=== PATIENT | female | born 1945 | race Caucasian/White ===

== ENCOUNTER 2020-12-21 11:33 | Emergency (ER) | payer OTHER ==
[~2020-12-21 11:33] MED LIST: IBUPROFEN800 MG PO; LEVAQUIN500 MG PO; ROBAXIN750 MG PO
[2020-12-21 12:46] LABS: ALBUMIN 3.2 g/dL (3.4-5.0); BASOPHIL 0.7 % (0-2); BILIRUBIN - TOTAL 0.9 mg/dL (0.2-1.0); BUN/CREAT RATIO (CALC) 10.4 RATIO; CREATININE 0.67 mg/dL (0.51-0.95); EOSINOPHIL 2.9 % (0-7); GLOBULIN (CALCULATION) 3.6 g/dL; HCT 35.5 % (37.0-47.0); HGB 11.8 g/dl (12.5-16.0); LYMPHOCYTE 36.3 % (15-48); MCH 32.2 pg (25.0-31.0); MCHC 33.2 g/dL (32.0-36.0); MONOCYTE 12.9 % (0-12); MPV 9.5 fL (6.0-9.5); NRBC 0; PLT 147 K/uL (150-400); POTASSIUM 3.8 mmol/L (3.5-5.1); RBC 3.66 M/uL (4.20-5.40); RDW 14.5 % (11.5-14.0); TOTAL PROTEIN 6.8 g/dL (6.4-8.2); WBC 4.1 K/uL (4.0-10.5)
== END 2020-12-21 13:44 | disposition home or self-care (01) ==
LOC: FER 11:33
PROVIDERS: Emergency Medicine
DX: R55 Syncope and collapse (principal); Z88.0 Allergy status to penicillin; Z88.5 Allergy status to narcotic agent
CPT/HCPCS: 36415; 70450; 80053; 85025; 93005

== ENCOUNTER 2021-01-31 18:24 | Emergency (ER) | payer OTHER ==
[2021-01-31 20:29] LABS: INR 1.35 (0.9-1.2); PROTHROMBIN TIME 15.8 SECONDS (11.4-13.6)
[2021-01-31 20:30] LABS: BASOPHIL 0.8 % (0-2); EOSINOPHIL 0.4 % (0-7); HCT 35.7 % (37.0-47.0); HGB 12.4 g/dl (12.5-16.0); LYMPHOCYTE 22.3 % (15-48); MCH 32.5 pg (25.0-31.0); MCHC 34.7 g/dL (32.0-36.0); MCV 93.7 fL (78.0-100.0); MONOCYTE 10.7 % (0-12); MPV 9.7 fL (6.0-9.5); NEUTROPHIL 65.6 % (41-80); NRBC 0; PLT 153 K/uL (150-400); RBC 3.81 M/uL (4.20-5.40); RDW 14.5 % (11.5-14.0); WBC 5.3 K/uL (4.0-10.5)
[2021-01-31 20:37] LABS: ALBUMIN 3.5 g/dL (3.4-5.0); BILIRUBIN - TOTAL 1.1 mg/dL (0.2-1.0); BUN/CREAT RATIO (CALC) 7.2 RATIO; CREATININE 0.69 mg/dL (0.51-0.95); GLOBULIN (CALCULATION) 3.5 g/dL; POTASSIUM 3.5 mmol/L (3.5-5.1)
[2021-01-31 20:48] LABS: LACTIC ACID 2.7 mmol/L (0.4-1.9)
[2021-01-31 22:00] LABS: BILIRUBIN NEGATIVE (NEGATIVE); BLOOD NEGATIVE Ery/uL (NEGATIVE); CLARITY CLEAR (CLEAR); COLOR YELLOW (YELLOW); GLUCOSE (U) NORMAL (NORMAL); LEUKOCYTES NEGATIVE Leu/uL (NEGATIVE); NITRITE NEGATIVE (NEGATIVE); PROTEIN NEGATIVE (NEGATIVE); SPECIFIC GRAVITY 1.015 (1.001-1.030); UROBILINOGEN 0.2 mg/dL (0.2-1.0); pH 8.5 (5.0-9.0)
[2021-01-31] MEDS ORDERED: ZOFRAN4 M1 PO (22:51)
== END 2021-01-31 23:20 | disposition home or self-care (01) ==
LOC: FER 18:24
PROVIDERS: Emergency Medicine
DX: K74.60 Unspecified cirrhosis of liver (principal); R11.10 Vomiting, unspecified; Z87.19 Personal history of other diseases of the digestive system
CPT/HCPCS: 36415; 71045; 80053; 81003; 82140; 82150; 83605; 83690; 84484; 85025; 85610; 93005; J2405; J7030; Q9967

== ENCOUNTER 2021-08-06 08:30 | Inpatient (IN) | payer OTHER ==
[~2021-08-06] VITALS: Ht 162.6 cm; Wt 76.3 kg
[~2021-08-06 08:30] MED LIST changes: +AZITHROMYCIN 2250 MG PO; +ZOFRAN4 M1 PO
[2021-08-06 09:24] LABS: BASOPHIL 0.8 % (0-2); HCT 39.9 % (37.0-47.0); HGB 13.3 g/dl (12.5-16.0); LYMPHOCYTE 22.6 % (15-48); MCHC 33.3 g/dL (32.0-36.0); MONOCYTE 10.1 % (0-12); MPV 9.5 fL (6.0-9.5); NEUTROPHIL 64.2 % (41-80); NRBC 0; PLT 182 K/uL (150-400); RBC 4.03 M/uL (4.20-5.40); RDW 13.1 % (11.5-14.0)
[2021-08-06 09:31] LABS: AMPHETAMINES NEGATIVE (NEGATIVE); BARBITURATES NEGATIVE (NEGATIVE); ECSTASY (MDMA) NEGATIVE (NEGATIVE); MARIJUANA (THC) NEGATIVE (NEGATIVE); METHADONE NEGATIVE (NEGATIVE); OPIATES POSITIVE (NEGATIVE); OXYCODONE POSITIVE (NEGATIVE)
[2021-08-06 09:40] LABS: INR 1.1 (0.9-1.2); PROTHROMBIN TIME 13.6 SECONDS (11.8-13.4)
[2021-08-06 09:46] LABS: PRO-BNP 121 pg/mL (<450)
[2021-08-06 09:55] LABS: ALBUMIN 3.5 g/dL (3.4-5.0); ALKALINE PHOSHATASE 97 U/L (46-116); ALT 47 U/L (14-59); AST 47 U/L (15-37); BILIRUBIN - TOTAL 0.6 mg/dL (0.2-1.0); BUN 19 mg/dL (7-18); C-REACTIVE PROTEIN <0.20 mg/dL (<=0.90); CHLORIDE 100 mmol/L (98-107); CO2 (BICARBONATE) 25 mmol/L (21-32); CREATININE 0.73 mg/dL (0.51-0.95); GLOBULIN (CALCULATION) 3.4 g/dL; GLUCOSE 184 mg/dL (74-106); MAGNESIUM 1.6 mg/dL (1.8-2.4); POTASSIUM 4.2 mmol/L (3.5-5.1); TOTAL PROTEIN 6.9 g/dL (6.4-8.2)
[2021-08-06 10:03] LABS: LACTIC ACID 3.8 mmol/L (0.4-1.9)
[2021-08-06 10:21] LABS: BILIRUBIN NEGATIVE (NEGATIVE); BLOOD NEGATIVE Ery/uL (NEGATIVE); CLARITY CLEAR (CLEAR); COLOR YELLOW (YELLOW); GLUCOSE (U) NORMAL (NORMAL); LEUKOCYTES 1+ Leu/uL (NEGATIVE); NITRITE NEGATIVE (NEGATIVE); PROTEIN NEGATIVE (NEGATIVE)
[2021-08-06 10:33] LABS: BACTERIA 1+; SQUAMOUS EPITHELIAL CELLS 20-50
[2021-08-06] MEDS ORDERED: GABAPENTIN300 MG PO (15:20)
[2021-08-06] MEDS ORDERED: ESCITALOPRAM OX20 MG PO (15:23)
[2021-08-06] MEDS ORDERED: ELAVIL25 MG PO (15:23)
[2021-08-06] MEDS ORDERED: SPIRONOLACTONE50 M1 PO (15:24)
[2021-08-06] MEDS ORDERED: METOPROLOL SUCC50 MG PO (15:24)
[2021-08-07 06:49] LABS: BASOPHIL 0.5 % (0-2); EOSINOPHIL 1.4 % (0-7); HCT 35.3 % (37.0-47.0); MCH 33.3 pg (25.0-31.0); MCV 98.1 fL (78.0-100.0); MONOCYTE 9.9 % (0-12); MPV 9.4 fL (6.0-9.5); NRBC 0; PLT 155 K/uL (150-400); WBC 6.3 K/uL (4.0-10.5)
[2021-08-07 07:10] LABS: BILIRUBIN - TOTAL 0.6 mg/dL (0.2-1.0); BUN/CREAT RATIO (CALC) 15.3 RATIO; CREATININE 0.59 mg/dL (0.51-0.95); GLOBULIN (CALCULATION) 3.5 g/dL; MAGNESIUM 2.1 mg/dL (1.8-2.4); POTASSIUM 3.9 mmol/L (3.5-5.1); TOTAL PROTEIN 6.5 g/dL (6.4-8.2)
[2021-08-08 06:06] LABS: BASOPHIL 0.6 % (0-2); EOSINOPHIL 1.7 % (0-7); HCT 37.5 % (37.0-47.0); HGB 12.7 g/dl (12.5-16.0); MCH 33.1 pg (25.0-31.0); MCHC 33.9 g/dL (32.0-36.0); MCV 97.7 fL (78.0-100.0); MONOCYTE 10.1 % (0-12); MPV 9.4 fL (6.0-9.5); NEUTROPHIL 56.3 % (41-80); NRBC 0; PLT 171 K/uL (150-400); RBC 3.84 M/uL (4.20-5.40); RDW 12.9 % (11.5-14.0); WBC 6.9 K/uL (4.0-10.5)
[2021-08-08 06:36] LABS: ALBUMIN 3.2 g/dL (3.4-5.0); BILIRUBIN - TOTAL 0.8 mg/dL (0.2-1.0); CREATININE 0.57 mg/dL (0.51-0.95); GLOBULIN (CALCULATION) 3.4 g/dL; MAGNESIUM 1.7 mg/dL (1.8-2.4); TOTAL PROTEIN 6.6 g/dL (6.4-8.2)
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
[2021-08-09 07:07] LABS: BASOPHIL 0.6 % (0-2); EOSINOPHIL 2.4 % (0-7); HCT 38.8 % (37.0-47.0); MCHC 33.5 g/dL (32.0-36.0); MCV 98.5 fL (78.0-100.0); MONOCYTE 11.3 % (0-12); MPV 9.4 fL (6.0-9.5); NEUTROPHIL 58.4 % (41-80); NRBC 0; PLT 155 K/uL (150-400); RBC 3.94 M/uL (4.20-5.40); RDW 12.8 % (11.5-14.0); WBC 7.9 K/uL (4.0-10.5)
[2021-08-09 07:48] LABS: ALBUMIN 3.1 g/dL (3.4-5.0); BILIRUBIN - TOTAL 0.6 mg/dL (0.2-1.0); BUN/CREAT RATIO (CALC) 16.4 RATIO; CREATININE 0.55 mg/dL (0.51-0.95); GLOBULIN (CALCULATION) 3.8 g/dL; POTASSIUM 4.1 mmol/L (3.5-5.1); TOTAL PROTEIN 6.9 g/dL (6.4-8.2)
[2021-08-09] MEDS ORDERED: CEFDINIR300 MG PO (09:28)
[2021-08-09] MEDS ORDERED: LACTULOSE10 G/15 ML PO (09:28)
--- NOTE | 2021-08-09 14:13 | NUR ---
08/09/21 Dr. Knight reports patient to be alert and oriented and ready for discharge. Ms. Bella chose [facility]. A referral was made via [facility]. Pedro Luis Phillips, son, was informed of the discharge. He reports plans to consider [facility]. Mr. Phillpis will also consider taking time from work to be with his mother for several days or to get her sister to stay in the home. 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
== END 2021-08-09 16:25 | disposition home health service (06) | DRG 871 ==
LOC: FER 08:30 → FMS 12:24
PROVIDERS: Emergency Medicine; ADMIT Internal Medicine
DX: A41.9 Sepsis, unspecified organism (principal); G92.8 Other toxic encephalopathy; K72.00 Acute and subacute hepatic failure without coma; N30.00 Acute cystitis without hematuria; E87.2 Acidosis; R65.20 Severe sepsis without septic shock; Z20.822 Contact with and (suspected) exposure to COVID-19; F41.8 Other specified anxiety disorders; E83.42 Hypomagnesemia; K75.81 Nonalcoholic steatohepatitis (NASH); F32.A Depression, unspecified; K74.60 Unspecified cirrhosis of liver; M79.7 Fibromyalgia; Z96.652 Presence of left artificial knee joint; Z88.1 Allergy status to other antibiotic agents; Z79.899 Other long term (current) drug therapy; Z87.891 Personal history of nicotine dependence; Z80.1 Family history of malignant neoplasm of trachea, bronchus and lung; Z80.41 Family history of malignant neoplasm of ovary; Z90.49 Acquired absence of other specified parts of digestive tract; Z90.710 Acquired absence of both cervix and uterus; Z98.41 Cataract extraction status, right eye; Z98.42 Cataract extraction status, left eye; Z98.890 Other specified postprocedural states
CPT/HCPCS: 36415; 70450; 71045; 80053; 80305; 81001; 82140; 82728; 82962; 83036; 83605; 83735; 83880; 84145; 84484; 85025; 85610; 85730; 86140; 87040; 87088; 93005; 96374; J0692; J0696; J1650; J3475; J7030; U0002

== ENCOUNTER 2022-02-16 11:01 | Inpatient (IN) | payer OTHER ==
[~2022-02-16] VITALS: Ht 162.6 cm; Wt 83.1 kg
[~2022-02-16 11:01] MED LIST changes: +CEFDINIR300 MG PO; +ELAVIL25 MG PO; +ESCITALOPRAM OX20 MG PO; +GABAPENTIN300 MG PO; +LACTULOSE10 G/15 ML PO; +METOPROLOL SUCC50 MG PO; +SPIRONOLACTONE50 M1 PO
[2022-02-16 12:49] LABS: BASOPHIL 0.4 % (0-2); EOSINOPHIL 0.1 % (0-7); HCT 32.1 % (37.0-47.0); HGB 10.9 g/dl (12.5-16.0); LYMPHOCYTE 19.8 % (15-48); MCH 33.7 pg (25.0-31.0); MCV 99.4 fL (78.0-100.0); MPV 10.1 fL (6.0-9.5); NEUTROPHIL 64.4 % (41-80); NRBC 0; PLT 96 K/uL (150-400); RBC 3.23 M/uL (4.20-5.40); RDW 13.6 % (11.5-14.0); WBC 7.3 K/uL (4.0-10.5)
[2022-02-16 13:00] LABS: ALBUMIN 2.9 g/dL (3.4-5.0); BILIRUBIN - TOTAL 1.2 mg/dL (0.2-1.0); CREATININE 0.82 mg/dL (0.51-0.95); GLOBULIN (CALCULATION) 2.9 g/dL; MAGNESIUM 1.4 mg/dL (1.8-2.4); POTASSIUM 3.9 mmol/L (3.5-5.1); TOTAL PROTEIN 5.8 g/dL (6.4-8.2)
[2022-02-16 13:07] LABS: BILIRUBIN NEGATIVE (NEGATIVE); BLOOD 2+ Ery/uL (NEGATIVE); CLARITY HAZY (CLEAR); COLOR YELLOW (YELLOW); GLUCOSE (U) NORMAL (NORMAL); LEUKOCYTES 2+ Leu/uL (NEGATIVE); NITRITE NEGATIVE (NEGATIVE); PROTEIN 1+ mg/dL (NEGATIVE)
[2022-02-16 13:14] LABS: URINARY WBC TNTC
[2022-02-16 13:15] LABS: BACTERIA 1+
[2022-02-16 13:26] LABS: LACTIC ACID 1.3 mmol/L (0.4-1.9)
[2022-02-16] MEDS ORDERED: ACETAMINOPHEN325 MG PO (19:37)
[2022-02-16] MEDS ORDERED: FLEXERIL5 MG PO (19:37)
[2022-02-16] MEDS ORDERED: GABAPENTIN300 MG PO (19:38)
[2022-02-16] MEDS ORDERED: COLACE100 MG PO (19:38)
[2022-02-16] MEDS ORDERED: LEXAPRO 10MG TA10 MG PO (19:38)
[2022-02-16] MEDS ORDERED: LACTULOSE10 G/15 ML PO (19:41)
[2022-02-16] MEDS ORDERED: ACIDOPHILUS PR1 EAC1 PO (19:41)
[2022-02-16] MEDS ORDERED: SEROQUEL 25MG T25 MG PO (19:42)
[2022-02-16] MEDS ORDERED: ALDACTONE50 MG PO (19:42)
[2022-02-16] MEDS ORDERED: TOPROL XL 50 MG50 MG PO (19:42)
[2022-02-16] MEDS ORDERED: ZINC50 MG PO (19:43)
[2022-02-17 11:41] LABS: BASOPHIL 0.4 % (0-2); EOSINOPHIL 0.2 % (0-7); HCT 29.6 % (37.0-47.0); LYMPHOCYTE 18.9 % (15-48); MCH 33.2 pg (25.0-31.0); MCHC 33.8 g/dL (32.0-36.0); MCV 98.3 fL (78.0-100.0); MPV 9.8 fL (6.0-9.5); NEUTROPHIL 64.1 % (41-80); NRBC 0; PLT 90 K/uL (150-400); RBC 3.01 M/uL (4.20-5.40); RDW 13.2 % (11.5-14.0)
[2022-02-17 11:42] LABS: WBC 5.1 K/uL (4.0-10.5)
[2022-02-17 12:23] LABS: ALBUMIN 2.4 g/dL (3.4-5.0); BILIRUBIN - DIRECT 0.2 mg/dL (0.00-0.20); BILIRUBIN - TOTAL 0.5 mg/dL (0.2-1.0); BUN/CREAT RATIO (CALC) 24.4 RATIO; CREATININE 0.78 mg/dL (0.51-0.95); GLOBULIN (CALCULATION) 3.2 g/dL; MAGNESIUM 1.9 mg/dL (1.8-2.4); PHOSPHORUS 2.2 mg/dL (2.6-4.7); POTASSIUM 3.8 mmol/L (3.5-5.1); TOTAL PROTEIN 5.6 g/dL (6.4-8.2)
--- NOTE | 2022-02-17 13:13 | NUR ---
02/17 Ms. Bella was admitted from [facility]. She uses a rw walker for ambulation and receives in-house therapy at [facility]. She is confused and has a mental health history at baseline. Per [facility] nursing, she was sent to the ED because she had a temp of 102 after being treated with oral antibiotics for 2 days and started running a fever of 102. - She may return to [facility] if SNF services are not needed. Call report to: [phone] and fax DS to: [phone].
[2022-02-17 19:00] LABS: BASOPHIL 0.3 % (0-2); EOSINOPHIL 0.6 % (0-7); HCT 33.4 % (37.0-47.0); HGB 11.1 g/dl (12.5-16.0); MCH 32.8 pg (25.0-31.0); MCHC 33.2 g/dL (32.0-36.0); MCV 98.8 fL (78.0-100.0); MONOCYTE 17.8 % (0-12); MPV 10.1 fL (6.0-9.5); NEUTROPHIL 55.4 % (41-80); NRBC 0; PLT 115 K/uL (150-400); RBC 3.38 M/uL (4.20-5.40); RDW 13.2 % (11.5-14.0); RETICULOCYTE COUNT 2.1 % (1.0-2.0); WBC 6.3 K/uL (4.0-10.5)
[2022-02-17 19:17] LABS: IRON % SATURATION 5.8 %SAT (20-50); LYMPHOCYTE 25.6 % (15-48)
[2022-02-17 20:07] LABS: BUN/CREAT RATIO (CALC) 24.7 RATIO; CREATININE 0.77 mg/dL (0.51-0.95); FOLIC ACID (SERUM) 19.5 ng/mL (8.6-58.9); PHOSPHORUS 2.9 mg/dL (2.6-4.7); POTASSIUM 3.9 mmol/L (3.5-5.1)
[2022-02-18 06:53] LABS: BASOPHIL 0.5 % (0-2); EOSINOPHIL 2.1 % (0-7); HCT 30.2 % (37.0-47.0); HGB 10.3 g/dl (12.5-16.0); LYMPHOCYTE 25.7 % (15-48); MCH 33.7 pg (25.0-31.0); MCHC 34.1 g/dL (32.0-36.0); MCV 98.7 fL (78.0-100.0); MONOCYTE 19.6 % (0-12); MPV 9.6 fL (6.0-9.5); NEUTROPHIL 51.8 % (41-80); NRBC 0; PLT 83 K/uL (150-400); RBC 3.06 M/uL (4.20-5.40); RDW 13.4 % (11.5-14.0)
[2022-02-18 06:54] LABS: WBC 3.8 K/uL (4.0-10.5)
[2022-02-18 07:21] LABS: BUN/CREAT RATIO (CALC) 21.2 RATIO; CREATININE 0.66 mg/dL (0.51-0.95); POTASSIUM 3.8 mmol/L (3.5-5.1)
[2022-02-20 10:31] LABS: BUN/CREAT RATIO (CALC) 13.8 RATIO; CREATININE 0.65 mg/dL (0.51-0.95)
[2022-02-20 10:38] LABS: BASOPHIL 1.2 % (0-2); HCT 32.6 % (37.0-47.0); HGB 10.7 g/dl (12.5-16.0); LYMPHOCYTE 39.1 % (15-48); MCH 32.6 pg (25.0-31.0); MCHC 32.8 g/dL (32.0-36.0); MCV 99.4 fL (78.0-100.0); MONOCYTE 10.5 % (0-12); MPV 9.8 fL (6.0-9.5); NEUTROPHIL 45.7 % (41-80); NRBC 0; PLT 136 K/uL (150-400); RBC 3.28 M/uL (4.20-5.40); RDW 13.5 % (11.5-14.0); WBC 4.3 K/uL (4.0-10.5)
[2022-02-20] MEDS ORDERED: TEGRETOL200 MG PO (13:42)
[2022-02-20] MEDS ORDERED: GABAPENTIN300 MG PO ×3 (16:08→16:11)
== END 2022-02-20 16:12 | disposition home or self-care (01) | DRG 871 ==
LOC: FER 11:01 → FTCU 17:36 → FMS 02-17 15:35
PROVIDERS: Emergency Medicine; Nurse Practitioner; ADMIT Internal Medicine
PROC: 3E03329 Introduction of Other Anti-infective into Peripheral Vein, Percutaneous Approach (ICD-10-PCS; principal; 2022-02-16)
PROC: 0T9B70Z Drainage of Bladder with Drainage Device, Via Natural or Artificial Opening (ICD-10-PCS; 2022-02-16)
DX: A41.51 Sepsis due to Escherichia coli [E. coli] (principal); G92.8 Other toxic encephalopathy; K72.00 Acute and subacute hepatic failure without coma; N30.01 Acute cystitis with hematuria; K76.6 Portal hypertension; E87.2 Acidosis; Z66 Do not resuscitate; R65.20 Severe sepsis without septic shock; F31.9 Bipolar disorder, unspecified; F03.90 Unspecified dementia, unspecified severity, without behavioral disturbance, psychotic disturbance, mood disturbance, and anxiety; G50.0 Trigeminal neuralgia; E11.9 Type 2 diabetes mellitus without complications; D50.9 Iron deficiency anemia, unspecified; D69.6 Thrombocytopenia, unspecified; K74.60 Unspecified cirrhosis of liver; K75.81 Nonalcoholic steatohepatitis (NASH); F41.9 Anxiety disorder, unspecified; Z88.1 Allergy status to other antibiotic agents; Z88.5 Allergy status to narcotic agent; Z79.899 Other long term (current) drug therapy; Z87.891 Personal history of nicotine dependence; Z90.49 Acquired absence of other specified parts of digestive tract; Z80.1 Family history of malignant neoplasm of trachea, bronchus and lung; Z90.710 Acquired absence of both cervix and uterus; Z98.41 Cataract extraction status, right eye; Z98.42 Cataract extraction status, left eye; Z96.652 Presence of left artificial knee joint
CPT/HCPCS: 36415; 70450; 80048; 80053; 81001; 82140; 82248; 82607; 82746; 82962; 83036; 83540; 83550; 83605; 83615; 83735; 84100; 84145; 85025; 87040; 87076; 87088; 87186; 94010; 96365; J0696; J1650; J1885; J2916; J3475; J3490; J7120

== ENCOUNTER 2022-05-31 08:39 | Emergency (ER) | payer OTHER ==
[~2022-05-31 08:39] MED LIST changes: +ACETAMINOPHEN325 MG PO; +ACIDOPHILUS PR1 EAC1 PO; +ALDACTONE50 MG PO; +COLACE100 MG PO; +FLEXERIL5 MG PO; +LEXAPRO 10MG TA10 MG PO; +SEROQUEL 25MG T25 MG PO; +TEGRETOL200 MG PO; +TOPROL XL 50 MG50 MG PO; +ZINC50 MG PO
[2022-05-31 09:48] LABS: EOSINOPHIL 1.4 % (0-7); HCT 35.3 % (37.0-47.0); HGB 12.1 g/dl (12.5-16.0); LYMPHOCYTE 20.4 % (15-48); MCH 33.2 pg (25.0-31.0); MCHC 34.3 g/dL (32.0-36.0); MPV 9.3 fL (6.0-9.5); NRBC 0; PLT 150 K/uL (150-400); RBC 3.64 M/uL (4.20-5.40); RDW 13.6 % (11.5-14.0)
[2022-05-31 10:10] LABS: ALBUMIN 3.3 g/dL (3.4-5.0); BILIRUBIN - TOTAL 0.5 mg/dL (0.2-1.0); CREATININE 0.8 mg/dL (0.51-0.95); GLOBULIN (CALCULATION) 3.3 g/dL; POTASSIUM 3.9 mmol/L (3.5-5.1); TOTAL PROTEIN 6.6 g/dL (6.4-8.2)
[2022-05-31 12:03] LABS: BILIRUBIN NEGATIVE (NEGATIVE); BLOOD NEGATIVE Ery/uL (NEGATIVE); CLARITY CLEAR (CLEAR); COLOR YELLOW (YELLOW); GLUCOSE (U) NORMAL (NORMAL); LEUKOCYTES 1+ Leu/uL (NEGATIVE); NITRITE NEGATIVE (NEGATIVE); PROTEIN NEGATIVE (NEGATIVE); SPECIFIC GRAVITY 1.015 (1.001-1.030)
[2022-05-31 12:11] LABS: AMORPHOUS URATES CRYSTALS TRACE; BACTERIA TRACE
[2022-05-31] MEDS ORDERED: CEPHALEXIN500 MG PO (12:38)
== END 2022-05-31 17:00 | disposition home or self-care (01) ==
LOC: FER 08:39
PROVIDERS: Emergency Medicine
DX: N39.0 Urinary tract infection, site not specified (principal); I11.0 Hypertensive heart disease with heart failure; I50.9 Heart failure, unspecified; F03.90 Unspecified dementia, unspecified severity, without behavioral disturbance, psychotic disturbance, mood disturbance, and anxiety; Z66 Do not resuscitate; Z88.0 Allergy status to penicillin; W19.XXXA Unspecified fall, initial encounter; Y92.129 Unspecified place in nursing home as the place of occurrence of the external cause
CPT/HCPCS: 36415; 70450; 71250; 72125; 72128; 72131; 80053; 81001; 84484; 85025; 87088; 93005